=== PATIENT | male | born 1990 | race Caucasian/White ===

== ENCOUNTER 2017-07-14 12:00 | Observation (INO) | payer BC ==
[~2017-07-14] VITALS: Ht 165.1 cm; Wt 67.8 kg
[~2017-07-14 12:00] MED LIST: ALBU90OI61 INH; AMOX500 PO; CRUTCH USE; GUAI600T33 PO; HYDACE5 PO; IBUP600 PO; IBUP800 PO; INDO25 PO; NAPR500 PO; OXYACE5T PO; PENVK500 PO; RXHYDACE PO; RXONDA4ODT MM; TRAM50 PO
[2017-07-14 12:57] LABS: BASOPHILS ABSOLUTE AUTO 0.04 K/mm3 (0.00-0.23); BASOPHILS PERCENT AUTO 0 % (0-2); EOSINOPHILS ABSOLUTE AUTO 0.03 K/mm3 (0.00-0.68); EOSINOPHILS PERCENT AUTO 0 % (0-6); Hematocrit 49.2 % (37.0-53.0); Hemoglobin 16.9 g/dL (13.5-17.5); IMMATURE GRAN ABSOLUTE AUTO 0.03 K/mm3 (0.00-0.10); IMMATURE GRAN PERCENT AUTO 0 % (0-1); LYMPHOCYTES ABSOLUTE AUTO 1.82 K/mm3 (0.84-5.20); LYMPHOCYTES PERCENT AUTO 18 % (21-46); MONOCYTES ABSOLUTE AUTO 0.83 K/mm3 (0.16-1.47); MONOCYTES PERCENT AUTO 8 % (4-13); Mean Corpuscular HGB 31.5 pg (26.0-34.0); Mean Corpuscular HGB Conc 34.3 g/dL (31.5-36.5); Mean Corpuscular Volume 92 fL (80-100); Mean Platelet Volume 9.1 fL (9.1-12.4); NEUTROPHILS ABSOLUTE AUTO 7.51 K/mm3 (1.96-9.15); NEUTROPHILS PERCENT AUTO 73 % (41-73); Platelet Count 321 K/mm3 (150-400); RDW Coefficient Variation 11.7 % (11.7-14.2); RDW Standard Deviation 39.3 fL (35.1-46.3); Red Blood Cell Count 5.37 M/mm3 (4.30-5.90); White Blood Cell Count 10.26 K/mm3 (4.00-11.30)
[2017-07-14 13:18] LABS: Anion Gap 6 mmol/L (6-16); Blood Urea Nitrogen 8 mg/dL (8-24); Bun/Creatinine Ratio 8.2 (12.0-20.0); CO2, Blood 27 mmol/L (21-32); Calcium, Blood 9.1 mg/dL (8.5-10.1); Chloride, Blood 103 mmol/L (98-108); Creatinine, Blood 0.98 mg/dL (0.60-1.20); Ethanol (Alcohol), Blood, Med <3 mg/dL; Glomerular Filtration Rate >60 (60-); Glucose, Blood 92 mg/dL (70-99); Potassium, Blood 4.1 mmol/L (3.5-5.5); Sodium, Blood 136 mmol/L (136-145)
[2017-07-14 15:10] LABS: U Amphetamine Screen Not Detected; U Barbituate Screen Not Detected; U Benzodiazapine Screen Not Detected; U Buprenorphine Screen Not Detected; U Cannabinoids Screen DETECTED; U Cocaine Screen Not Detected; U Methadone Screen Not Detected; U Methamphetamine Screen Not Detected; U Opiates Screen Not Detected; U Oxycodone Screen Not Detected; U Phencyclidine Screen Not Detected; U Propoxyphene Screen Not Detected
== END 2017-07-15 10:54 | disposition home or self-care (01) ==
LOC: ER 12:00 → MEDS 12:01
PROVIDERS: Emergency Medicine
DX: T40.1X2A Poisoning by heroin, intentional self-harm, initial encounter (principal); G40.909 Epilepsy, unspecified, not intractable, without status epilepticus; J45.909 Unspecified asthma, uncomplicated
CPT/HCPCS: 36415; 80048; 85025; 93005; 93010; 96374; 96375; 99285; G0378; G0480; J2060; J2405

== ENCOUNTER 2019-08-28 23:18 | Emergency (ER) | payer OTHER ==
[~2019-08-28] VITALS: Ht 167.6 cm; Wt 81.7 kg
[2019-08-29 00:18] LABS: Source, Urine Clean Catch
[2019-08-29 00:20] LABS: Appearance, Urine Clear (Clear); Blood, Urine 1+ (Neg); Color, Urine Brown (P-Yellow); Glucose Qualitative, Urine Neg (Neg); Ketones, Urine 1+ (Neg); Leukocyte Esterase, Urine 2+ (Neg); Nitrite, Urine Neg (Neg); Protein, Urine 2+ (Neg); Urobilinogen, Urine 4+ (Normal)
[2019-08-29 00:21] LABS: Bilirubin, Urine 2+ (Neg)
[2019-08-29 00:26] LABS: Squamous Epithelial Cells Not Seen /hpf (Few)
[2019-08-29 00:27] LABS: Amorphous Light (0-Heavy); Bacteria Many /hpf; Mucus Mod (0-Heavy)
[2019-08-29 00:45] LABS: BASOPHILS ABSOLUTE AUTO 0.06 K/mm3 (0.00-0.23); BASOPHILS PERCENT AUTO 0 % (0-2); EOSINOPHILS PERCENT AUTO 0 % (0-6); IMMATURE GRAN ABSOLUTE AUTO 0.13 K/mm3 (0.00-0.10); IMMATURE GRAN PERCENT AUTO 1 % (0-1); LYMPHOCYTES ABSOLUTE AUTO 0.66 K/mm3 (0.84-5.20); LYMPHOCYTES PERCENT AUTO 3 % (21-46); MONOCYTES ABSOLUTE AUTO 1.91 K/mm3 (0.16-1.47); MONOCYTES PERCENT AUTO 8 % (4-13); Mean Corpuscular HGB Conc 34.8 g/dL (31.5-36.5); Mean Corpuscular Volume 92 fL (80-100); Mean Platelet Volume 9.1 fL (9.1-12.4); NEUTROPHILS ABSOLUTE AUTO 21.35 K/mm3 (1.96-9.15); NEUTROPHILS PERCENT AUTO 89 % (41-73); Platelet Count 285 K/mm3 (150-400); RDW Coefficient Variation 11.4 % (11.7-14.2); RDW Standard Deviation 38.6 fL (35.1-46.3); White Blood Cell Count 24.11 K/mm3 (4.00-11.30)
[2019-08-29 01:02] LABS: BAND PERCENT MAN 14 % (0-8); BASOPHILS PERCENT MAN 0 % (0-2); EOSINOPHILS PERCENT MAN 0 % (0-6); LYMPHOCYTES ABSOLUTE MAN 0.24 K/mm3 (0.84-5.20); LYMPHOCYTES PERCENT MAN 1 % (21-46); MONOCYTES ABSOLUTE MAN 0.72 K/mm3 (0.16-1.47); MONOCYTES PERCENT MAN 3 % (4-13); NEUTROPHILS ABSOLUTE MAN 23.14 K/mm3 (1.96-9.15); SEG NEUTROPHILS PERCENT MAN 82 % (41-73); TOTAL CELLS COUNTED 100
[2019-08-29 01:03] LABS: Alanine Aminotransfer (ALT/SGP 280 U/L (12-78); Albumin, Blood 3.8 g/dL (3.4-5.0); Albumin/Globulin Ratio 0.8 (0.8-1.8); Alk Phos 96 U/L (50-136); Anion Gap 6 mmol/L (6-16); Aspartate Aminotrans (AST/SGOT 107 U/L (12-37); Blood Urea Nitrogen 14 mg/dL (8-24); Bun/Creatinine Ratio 17.2 (12.0-20.0); CO2, Blood 31 mmol/L (21-32); Chloride, Blood 101 mmol/L (98-108); Creatinine, Blood 0.81 mg/dL (0.60-1.20); Globulin, Blood 4.7 g/dL (2.2-4.0); Glomerular Filtration Rate >60 (60-); Glucose, Blood 131 mg/dL (70-99); Potassium, Blood 3.9 mmol/L (3.5-5.5); Sodium, Blood 138 mmol/L (136-145); Total Protein, Blood 8.5 g/dL (6.4-8.2)
[2019-08-29] MEDS ORDERED: Magnesium Citr296 ML PO (02:51)
[2019-08-29] MEDS ORDERED: Colace100 MG PO (02:51)
[2019-08-29] MEDS ORDERED: CEPH500 PO (02:51)
== END 2019-08-29 03:08 | disposition home or self-care (01) ==
LOC: ER 23:18
PROVIDERS: Emergency Medicine
DX: N30.90 Cystitis, unspecified without hematuria (principal); R74.0 Nonspecific elevation of levels of transaminase and lactic acid dehydrogenase [LDH]; F11.10 Opioid abuse, uncomplicated
CPT/HCPCS: 36415; 74177; 80053; 81001; 83690; 85025; 87086; 96365; 96375; 99284-25; J0696; J1885; J7030; Q9967

== ENCOUNTER 2021-09-24 03:57 | Emergency (ER) | payer OTHER ==
[~2021-09-24] VITALS: Ht 167.6 cm; Wt 81.7 kg
[~2021-09-24 03:57] MED LIST changes: +CEPH500 PO; +Colace100 MG PO; +Magnesium Citr296 ML PO
[2021-09-24 05:07] LABS: BASOPHILS ABSOLUTE AUTO 0.05 K/mm3 (0.00-0.23); BASOPHILS PERCENT AUTO 1 % (0-2); EOSINOPHILS ABSOLUTE AUTO 0.11 K/mm3 (0.00-0.68); EOSINOPHILS PERCENT AUTO 1 % (0-6); Hematocrit 45.9 % (37.0-53.0); Hemoglobin 15.3 g/dL (13.5-17.5); IMMATURE GRAN ABSOLUTE AUTO 0.02 K/mm3 (0.00-0.10); IMMATURE GRAN PERCENT AUTO 0 % (0-1); LYMPHOCYTES ABSOLUTE AUTO 3.04 K/mm3 (0.84-5.20); LYMPHOCYTES PERCENT AUTO 36 % (21-46); MONOCYTES ABSOLUTE AUTO 0.61 K/mm3 (0.16-1.47); MONOCYTES PERCENT AUTO 7 % (4-13); Mean Corpuscular HGB 30.8 pg (26.0-34.0); Mean Corpuscular HGB Conc 33.3 g/dL (31.5-36.5); Mean Corpuscular Volume 92 fL (80-100); Mean Platelet Volume 9.8 fL (9.1-12.4); NEUTROPHILS ABSOLUTE AUTO 4.52 K/mm3 (1.96-9.15); NEUTROPHILS PERCENT AUTO 54 % (41-73); Platelet Count 238 K/mm3 (150-400); RDW Coefficient Variation 12.6 % (11.7-14.2); RDW Standard Deviation 42.7 fL (35.1-46.3); Red Blood Cell Count 4.97 M/mm3 (4.30-5.90); White Blood Cell Count 8.35 K/mm3 (4.00-11.30)
[2021-09-24 05:19] LABS: Albumin, Blood 3.7 g/dL (3.4-5.0); Albumin/Globulin Ratio 0.9 (0.8-1.8); Bilirubin, Total 0.3 mg/dL (0.1-1.0); Bun/Creatinine Ratio 14.4 (12.0-20.0); Calcium, Blood 8.7 mg/dL (8.5-10.1); Creatinine, Blood 0.77 mg/dL (0.60-1.20); Globulin, Blood 4.3 g/dL (2.2-4.0); Potassium, Blood 4.3 mmol/L (3.5-5.5)
[2021-09-24 05:32] LABS: Source, Urine Voided
[2021-09-24] MEDS ORDERED: Protonix40 MG PO (05:37)
[2021-09-24 05:52] LABS: Appearance, Urine Clear (Clear); Bilirubin, Urine Neg (Neg); Blood, Urine Neg (Neg); Color, Urine Yellow (P-Yellow); Glucose Qualitative, Urine Neg (Neg); Ketones, Urine Neg (Neg); Leukocyte Esterase, Urine Neg (Neg); Nitrite, Urine Neg (Neg); Protein, Urine Neg (Neg); Urobilinogen, Urine NORM (Normal)
[2021-09-24 06:14] LABS: U Amphetamine Screen Not Detected; U Barbituate Screen Not Detected; U Benzodiazapine Screen Not Detected; U Buprenorphine Screen Not Detected; U Cannabinoids Screen Not Detected; U Cocaine Screen Not Detected; U Methadone Screen DETECTED; U Methamphetamine Screen Not Detected; U Opiates Screen Not Detected; U Oxycodone Screen Not Detected; U Phencyclidine Screen Not Detected; U Propoxyphene Screen Not Detected
== END 2021-09-24 06:01 | disposition home or self-care (01) ==
LOC: ER 03:57
PROVIDERS: Emergency Medicine
DX: R10.13 Epigastric pain (principal); Z79.891 Long term (current) use of opiate analgesic; Z79.899 Other long term (current) drug therapy
CPT/HCPCS: 80053; 81003; 83605; 83690; 84484; 85025; 93005; 93010; C9113; J1630; J1885; J7030

== ENCOUNTER 2024-07-12 17:53 | Emergency (ER) | payer SELFPAY ==
[~2024-07-12] VITALS: Ht 177.8 cm; Wt 74.8 kg
[~2024-07-12 17:53] MED LIST changes: +Protonix40 MG PO
[2024-07-12 19:08] LABS: BASOPHILS ABSOLUTE AUTO 0.05 K/mm3 (0.00-0.23); BASOPHILS PERCENT AUTO 0 % (0-2); EOSINOPHILS ABSOLUTE AUTO 0.01 K/mm3 (0.00-0.68); EOSINOPHILS PERCENT AUTO 0 % (0-6); Hematocrit 45.3 % (37.0-53.0); IMMATURE GRAN ABSOLUTE AUTO 0.16 K/mm3 (0.00-0.10); IMMATURE GRAN PERCENT AUTO 1 % (0-1); LYMPHOCYTES ABSOLUTE AUTO 2.11 K/mm3 (0.84-5.20); LYMPHOCYTES PERCENT AUTO 10 % (21-46); MONOCYTES ABSOLUTE AUTO 1.44 K/mm3 (0.16-1.47); MONOCYTES PERCENT AUTO 7 % (4-13); Mean Corpuscular HGB 32.1 pg (26.0-34.0); Mean Corpuscular HGB Conc 35.3 g/dL (31.5-36.5); Mean Corpuscular Volume 91 fL (80-100); Mean Platelet Volume 9.3 fL (9.1-12.4); NEUTROPHILS ABSOLUTE AUTO 18.08 K/mm3 (1.96-9.15); NEUTROPHILS PERCENT AUTO 83 % (41-73); Platelet Count 240 K/mm3 (150-400); RDW Coefficient Variation 11.7 % (11.7-14.2); RDW Standard Deviation 39.1 fL (35.1-46.3); Red Blood Cell Count 4.98 M/mm3 (4.30-5.90); White Blood Cell Count 21.85 K/mm3 (4.00-11.30)
[2024-07-12 19:34] LABS: Albumin, Blood 3.9 g/dL (3.4-5.0); Albumin/Globulin Ratio 0.8 (0.8-1.8); Bun/Creatinine Ratio 16.5 (12.0-20.0); Calcium, Blood 9.1 mg/dL (8.5-10.1); Creatinine, Blood 0.67 mg/dL (0.60-1.20); Globulin, Blood 4.7 g/dL (2.2-4.0); Potassium, Blood 3.3 mmol/L (3.5-5.5); Total Protein, Blood 8.6 g/dL (6.4-8.2)
[2024-07-12 20:05] LABS: Influenza A, PCR NEGATIVE (NEGATIVE); Influenza B, PCR NEGATIVE (NEGATIVE); SARS-Cov-2 (COVID-19) PCR, MMC NEGATIVE (NEGATIVE)
[2024-07-12 20:33] VITALS: BP 129/77
[2024-07-12 20:34] LABS: Resp Syncytial Virus, PCR POSITIVE (NEGATIVE)
[2024-07-12] MEDS ORDERED: Acetaminophen 500 MG Tab PO ONE (21:35)
[2024-07-12] MEDS ORDERED: Ondansetron 4 MG TAB PO ONE (21:35)
[2024-07-12] MEDS ORDERED: ONDA4 PO (21:37)
[2024-07-13] MEDS ORDERED: AMOCLA875 PO (02:25)
== END 2024-07-12 21:55 | disposition home or self-care (01) ==
LOC: ER 17:53
PROVIDERS: Student in an Organized Health Care Education/Training Program
DX: J12.1 Respiratory syncytial virus pneumonia (principal); Z79.899 Other long term (current) drug therapy
CPT/HCPCS: 0241U; 36415; 71046; 80053; 83690; 85025; 99284-25; A9270

== ENCOUNTER → 2025-01-13 | Outpatient (CLI) | payer SELFPAY ==
[~2025-01-13] MED LIST changes: +AMOCLA875 PO; +ONDA4 PO
[2025-01-13 11:21] LABS: BASOPHILS ABSOLUTE AUTO 0.03 K/mm3 (0.00-0.23); BASOPHILS PERCENT AUTO 0 % (0-2); EOSINOPHILS ABSOLUTE AUTO 0.02 K/mm3 (0.00-0.68); EOSINOPHILS PERCENT AUTO 0 % (0-6); Hematocrit 47.9 % (37.0-53.0); Hemoglobin 16.6 g/dL (13.5-17.5); IMMATURE GRAN ABSOLUTE AUTO 0.05 K/mm3 (0.00-0.10); IMMATURE GRAN PERCENT AUTO 0 % (0-1); LYMPHOCYTES ABSOLUTE AUTO 1.19 K/mm3 (0.84-5.20); LYMPHOCYTES PERCENT AUTO 9 % (21-46); MONOCYTES ABSOLUTE AUTO 0.58 K/mm3 (0.16-1.47); MONOCYTES PERCENT AUTO 4 % (4-13); Mean Corpuscular HGB Conc 34.7 g/dL (31.5-36.5); Mean Corpuscular Volume 94 fL (80-100); NEUTROPHILS ABSOLUTE AUTO 11.44 K/mm3 (1.96-9.15); NEUTROPHILS PERCENT AUTO 86 % (41-73); NRBC ABSOLUTE 0.00 K/mm3 (0.00-0.02); NRBC Auto 0.0 /100 WBC (0.0-0.2); Platelet Count 270 K/mm3 (150-400); RDW Coefficient Variation 12.4 % (11.7-14.2); RDW Standard Deviation 42.8 fL (35.1-46.3)
[2025-01-13 11:30] LABS: Alanine Aminotransfer (ALT/SGP 76.0 U/L (12-78); Albumin, Blood 4.7 g/dL (3.4-5.0); Albumin/Globulin Ratio 1.1 (0.8-1.8); Anion Gap 12.0 mmol/L (3-11); Aspartate Aminotrans (AST/SGOT 42.0 U/L (12-37); Bilirubin, Total 0.7 mg/dL (0.1-1.0); Blood Urea Nitrogen 6.0 mg/dL (8-24); CO2, Blood 32.0 mmol/L (21-32); Calcium, Blood 9.9 mg/dL (8.5-10.1); Chloride, Blood 100.0 mmol/L (98-108); Creatinine, Blood 0.83 mg/dL (0.60-1.20); Globulin, Blood 4.3 g/dL (2.2-4.0); Glucose, Blood 107.0 mg/dL (70-99); Potassium, Blood 4.5 mmol/L (3.5-5.5); Sodium, Blood 139.0 mmol/L (136-145); Total Protein, Blood 9.0 g/dL (6.4-8.2)
== END ==
LOC: LAB 11:16 → LAB SHORT 11:16
DX: R10.31 Right lower quadrant pain (principal)
CPT/HCPCS: 80053; 83690; 85025